=== PATIENT | male | born 1955 | race Caucasian/White ===

== ENCOUNTER 2016-12-04 12:18 | Observation (INO) | payer OTHER ==
[~2016-12-04] VITALS: Ht 177.8 cm; Wt 111.4 kg
[2016-12-04 13:00] LABS: HEMATOCRIT 44.5 % (38.0-50.0); MCHC 34.4 G/DL (30.0-36.0); MCV 87.3 FL (86-99); MEAN PLAT.VOLUME 10.8 uM^3 (9.0-12.4); PLATELET COUNT 316 K/uL (156-360); RBC DIS.WIDTH-CV 12.3 % (11.8-14.6); RBC DIS.WIDTH-SD 39.4 % (39-53); WHITE BLOOD COUNT 16.8 K/uL (4.1-10.2)
[2016-12-04 13:07] LABS: CHLORIDE 103 mEq/L (99-109); POTASSIUM 3.5 mEq/L (3.7-5.4); SODIUM 141 mEq/L (136-147)
[2016-12-04 13:10] LABS: GLUCOSE 172 mg/dL (70-99)
[2016-12-04 13:11] LABS: ANION GAP 16 MEQ/L (2-14)
[2016-12-04 13:12] LABS: TOTAL BILIRUBIN 0.6 mg/dL (0.0-1.0)
[2016-12-04 13:13] LABS: ALKALINE PHOSPHATASE 107 IU/L (3-129); GFR ESTIMATE (CALCULATED) > 59 mL/min/
[2016-12-04 13:14] LABS: UREA NITROGEN (BUN) 26 mg/dL (9-23)
[2016-12-04 13:38] LABS: LIPASE 69 U/L (1.0-51.0)
[2016-12-04 16:08] LABS: ADD MIUA? NO; BILIRUBIN NEGATIVE; BLOOD NEGATIVE; COLOR YELLOW ((YELLOW)); GLUCOSE (STRIP) 50; KETONES 20; LEUKOCYTES NEGATIVE; NITRITE NEGATIVE; PROTEIN (STRIP) 30; UCUL ADDED? NO; UROBILINOGEN 0.2 MG/DL (0.2-1.0)
[2016-12-04] MEDS ORDERED: CRESTOR10 MG PO (18:57)
[2016-12-04] MEDS ORDERED: AMLODIPINE BESY10 MG PO (18:57)
[2016-12-04] MEDS ORDERED: LEXAPRO10 MG PO (18:58)
[2016-12-04] MEDS ORDERED: PRINZIDE 10-121 EACH PO (18:58)
[2016-12-04] MEDS ORDERED: SUPER MULTIVIT1 EACH PO (18:58)
[2016-12-04] MEDS ORDERED: ADVIL,NUPRIN,M200 MG PO (18:58)
[2016-12-04 21:37] LABS: TROP-I INTERPRETATION NEGATIVE; TROPONIN-I < 0.01 ng/mL (0.0-0.30)
[2016-12-04 22:25] VITALS: BP 127/67
[2016-12-04 23:18] LABS: POINT-OF-CARE METER ID UU13113831
[2016-12-05 01:27] VITALS: BP 165/94
[2016-12-05 02:25] LABS: EOSINOPHIL (%) 0 % (0-5); HEMATOCRIT 44.9 % (38.0-50.0); IMMATURE GRANULOCYTE (%) 0.6 % (0.0-0.7); IMMATURE GRANULOCYTE COUNT 0.1 K/uL; INSTRUMENT ABS NEUTROPHIL CT 13.9 K/uL; LYMPHOCYTE COUNT 0.7 K/uL (1.0-2.8); MCH 29.7 PG (29.0-34.0); MCHC 34.1 G/DL (30.0-36.0); MCV 87.2 FL (86-99); MEAN PLAT.VOLUME 10.6 uM^3 (9.0-12.4); MONOCYTE (%) 8.9 % (3-12); MONOCYTE COUNT 1.4 K/uL (0-0.8); NEUTROPHIL (%) 86.2 % (45-76); NEUTROPHIL COUNT 13.9 K/uL (1.8-6.4); PLATELET COUNT 263 K/uL (156-360); RBC DIS.WIDTH-CV 12.4 % (11.8-14.6); RBC DIS.WIDTH-SD 39.8 % (39-53); RED BLOOD COUNT 5.15 M/uL (4.00-5.50); WHITE BLOOD COUNT 16.1 K/uL (4.1-10.2)
[2016-12-05 02:33] LABS: INTER. NORMALIZED RATIO 1.2; PROTHROMBIN TIME 12.7 SEC (10.2-12.9)
[2016-12-05 02:36] LABS: PTT 32.4 SEC (25-37)
[2016-12-05 02:43] LABS: CHLORIDE 102 mEq/L (99-109); POTASSIUM 4.1 mEq/L (3.7-5.4); SODIUM 140 mEq/L (136-147)
[2016-12-05 02:45] LABS: GLUCOSE 156 mg/dL (70-99)
[2016-12-05 02:46] LABS: ANION GAP 15 MEQ/L (2-14); TROP-I INTERPRETATION NEGATIVE; TROPONIN-I < 0.01 ng/mL (0.0-0.30)
[2016-12-05 02:47] LABS: TOTAL BILIRUBIN 0.7 mg/dL (0.0-1.0)
[2016-12-05 02:49] LABS: ALKALINE PHOSPHATASE 101 IU/L (3-129); GFR ESTIMATE (CALCULATED) > 59 mL/min/
[2016-12-05 02:50] LABS: UREA NITROGEN (BUN) 24 mg/dL (9-23)
[2016-12-05 02:56] LABS: ERTH.SED.RATE 12 MM/HR (0-20)
[2016-12-05 03:26] LABS: HDL CHOLESTEROL 53 MG/DL (Desirable>=40); LDL CHOLESTEROL 103 mg/dL (Desirable<100); NON-HDL CHOLESTEROL 116 mg/dL (Desirable<160); TOTAL CHOLESTEROL 169 mg/dL (Desirable<200); TRIGLYCERIDES 65 MG/DL (Normal: <150)
[2016-12-05 04:00] VITALS: BP 144/81
[2016-12-05 06:43] LABS: HEMATOCRIT 43.9 % (38.0-50.0); MCH 30.6 PG (29.0-34.0); MCHC 34.4 G/DL (30.0-36.0); MEAN PLAT.VOLUME 11.5 uM^3 (9.0-12.4); PLATELET COUNT 284 K/uL (156-360); RBC DIS.WIDTH-CV 12.8 % (11.8-14.6); RBC DIS.WIDTH-SD 41.7 % (39-53); RED BLOOD COUNT 4.93 M/uL (4.00-5.50); WHITE BLOOD COUNT 14.2 K/uL (4.1-10.2)
[2016-12-05 07:14] LABS: Estimated Average Glucose 140 mg/dL (70-123); HEMOGLOBIN A1c (GLYCOHEMOGLOB) 6.5 % HGB (Below 5.7)
[2016-12-05 07:25] VITALS: BP 154/80
[2016-12-05 08:09] LABS: ANION GAP 12 MEQ/L (2-14); CHLORIDE 103 MEQ/L (99-109); POTASSIUM 3.6 MEQ/L (3.7-5.4); SAMPLE HEMOLYSIS CHECK 0; SAMPLE ICTERIC CHECK 0; SAMPLE LIPEMIA CHECK 0; SODIUM 142 MEQ/L (136-147); TOTAL BILIRUBIN 0.7 MG/DL (0.0-1.0)
[2016-12-05 08:34] LABS: ALKALINE PHOSPHATASE 94 IU/L (3-129); GFR ESTIMATE (CALCULATED) > 59 mL/min/; GLUCOSE 149 mg/dL (70-99); UREA NITROGEN (BUN) 26 mg/dL (9-23)
== END 2016-12-05 08:34 | disposition short-term general hospital (02) ==
LOC: EME 12:18 → EDOF 20:47 → ENRESERV 20:48 → 5WEST 22:17
PROVIDERS: Hospitalist; Physician Assistant Medical
DX: K55.069 Acute infarction of intestine, part and extent unspecified (principal); K55.9 Vascular disorder of intestine, unspecified; I10 Essential (primary) hypertension; E78.5 Hyperlipidemia, unspecified; Z82.49 Family history of ischemic heart disease and other diseases of the circulatory system; Z87.442 Personal history of urinary calculi; E21.3 Hyperparathyroidism, unspecified; E66.9 Obesity, unspecified; Z68.35 Body mass index [BMI] 35.0-35.9, adult; N20.0 Calculus of kidney; N28.1 Cyst of kidney, acquired; D72.829 Elevated white blood cell count, unspecified; Z88.0 Allergy status to penicillin; Z82.5 Family history of asthma and other chronic lower respiratory diseases; Z83.511 Family history of glaucoma; Z83.3 Family history of diabetes mellitus
CPT/HCPCS: 74174; 74176; 80053; 80061; 81003; 82948; 83036; 83605; 83690; 84484; 85025; 85027; 85610; 85651; 85730; 93005; 99281; 99285; G0378; J1170; J1650; J1885; J2270; J2405; J3010; J7030; S0028